=== PATIENT | male | born 1965 | race Caucasian/White ===

== ENCOUNTER 2020-07-05 08:18 | Outpatient (CLI) | payer MEDICARE, MEDICAID | END 2020-07-05 08:19 | disposition home or self-care (01) | LOC: CSHCT 08:18 | PROVIDERS: ATTEND Nurse Practitioner Family | DX: R63.4 Abnormal weight loss (principal); E04.9 Nontoxic goiter, unspecified; E06.3 Autoimmune thyroiditis; E78.1 Pure hyperglyceridemia; D64.9 Anemia, unspecified; E55.9 Vitamin D deficiency, unspecified; F33.0 Major depressive disorder, recurrent, mild; F79 Unspecified intellectual disabilities; G47.33 Obstructive sleep apnea (adult) (pediatric); H54.40 Blindness, one eye, unspecified eye; K21.9 Gastro-esophageal reflux disease without esophagitis; M10.9 Gout, unspecified; R16.0 Hepatomegaly, not elsewhere classified; R89.9 Unspecified abnormal finding in specimens from other organs, systems and tissues; K63.5 Polyp of colon | CPT/HCPCS: 71260; 74177; 76536 ==